=== PATIENT | male | born 1945 | race Caucasian/White ===

== ENCOUNTER → 2016-10-01 | Outpatient (CLI) | payer MEDICARE, BC ==
[2016-10-01 11:43] LABS: BLOOD GAS BASE EXCESS 0.3 mmol/L (-2-2); BLOOD GAS CARBOXYHEMOGLOBIN 1.2 % (0-4); BLOOD GAS HCO3 24 mmol/L (22-26); BLOOD GAS METHEMOGLOBIN 1.1 % (0-2); BLOOD GAS O2 HGB SATURATION 89 % (90-100); BLOOD GAS OXYGEN CONTENT 17.2 Vol % (12.0-20.0); BLOOD GAS PCO2 37 mmHg (38-42); BLOOD GAS PO2 62 mmHg (61-120); BLOOD GAS TOTAL HGB 13.7 G/DL (12.0-16.0); TEMP CORR TO 98.6
[2016-10-01 11:44] LABS: CRITICAL VALUE YES; DRAW SITE RT RADIAL; FIO2 21 %; NUMBER OF ARTERIAL PUNCTURES 1; STAT NO; ULNAR PULSE PRESENT
--- NOTE | 2016-10-01 13:08 | RADRPT ---
EXAM DATE/TIME: 10/01/2016 11:49 [facility] COMPARISON: No previous studies available for comparison. INDICATIONS : Difficulty breathing. MEDICAL HISTORY : Chronic obstructive pulmonary disease. SURGICAL HISTORY : None. ENCOUNTER: Initial ACUITY: 1 week PAIN SCORE: 0/10 LOCATION: Bilateral chest FINDINGS: PA and lateral views of the chest demonstrate minimal lingular infiltrate. Heart borderline enlarged. There is some fissural thickening. Minimal blunting right costophrenic angle could be a tiny effusio n. The cardiomediastinal contours are unremarkable. Osseous structures are intact. CONCLUSION: Lingular infiltrate. Treatment and followup recommended. Giacomo Ennis MD on October 01, 2016 at 13:05 Board Certified Radiologist. This report was verified electronically.
--- NOTE | 2016-10-18 11:17 | RSPPFT ---
DATE OF PROCEDURE: 10/01/16 COMMENTS: Spirometry demonstrates an FEV1 of 1.7 at 62% of predicted, FVC of 3.2 at 77%, FEV1/FVC ratio is 54%. FEF 25-75 of 0.7 is 27%. Post-bronchodilator study demonstrated no significant change. Lung volumes demonstrated a raised RV/TLC ratio suggesting hyperinflation and air trapping. Diffusion capacity is mildly reduced. Room air arterial blood gases demonstrated a pH of 7.40, PCO2 of 37, PO2 of 62 and O2 Saturation at 89%. Flow volume loops are suggestive of an obstructive defect. IMPRESSION: 1. Moderately severe obstructive disease. 2. No significant change following use of bronchodilator. 3. Mild reduction in diffusion capacity.
== END ==
LOC: HRSP 10:36
DX: J44.9 Chronic obstructive pulmonary disease, unspecified (principal); R06.00 Dyspnea, unspecified; E11.9 Type 2 diabetes mellitus without complications; E03.9 Hypothyroidism, unspecified; G47.30 Sleep apnea, unspecified
CPT/HCPCS: 36600; 71020; 82805; 94060; 94726; 94729

== ENCOUNTER 2017-05-14 14:02 | Emergency (ER) | payer MEDICARE, BC ==
[~2017-05-14] VITALS: Ht 175.3 cm; Wt 125.0 kg
[2017-05-14 14:04] VITALS: BP 154/69; PULSE 87; RESP 16; TEMP 98.4; O2SAT 93
[2017-05-14 14:08] VITALS: BP_SYST 117; BP_SYST 154; BP_DIAS 64; BP_DIAS 69; PULSE 87; PULSE 91; RESP 16; TEMP 98.4; TEMP 98.5; O2SAT 100; O2SAT 93
--- NOTE | 2017-05-14 15:02 | RADRPT ---
EXAM DATE/TIME: 05/14/2017 14:42 [facility] COMPARISON: CHEST PA & LAT, October 01, 2016, 11:49. INDICATIONS : Short of breath. MEDICAL HISTORY : Chronic obstructive pulmonary disease. atrial fibrillation SURGICAL HISTORY : None. ENCOUNTER: Initial ACUITY: 1 week PAIN SCORE: 0/10 LOCATION: Bilateral chest FINDINGS: There is moderate hyperinflation with mild compensated cardiomegaly. There is no overt congestive fa ilure. Mild peribronchial thickening in both spaces. . Osseous structures are intact. CONCLUSION: Hyperinflation and mild peribronchial thickening. No congestive failure. Dominic Cervantes MD FACR on May 14, 2017 at 15:00 Board Certified Radiologist. This report was verified electronically.
[2017-05-14 15:22] LABS: AUTOMATED NEUTROPHIL # 7.2 TH/MM3 (1.8-7.7); BASOPHIL # 0.1 TH/MM3 (0-0.2); BASOPHIL % 0.7 % (0.0-2.0); EOSINOPHIL # 0.1 TH/MM3 (0-0.4); EOSINOPHIL % 0.8 % (0.0-4.0); HEMATOCRIT 41.7 % (39.0-51.0); HEMO FLAGS DIFF FINAL; LYMPH % 12.7 % (9.0-44.0); LYMPHOCYTE # 1.2 TH/MM3 (1.0-4.8); MEAN CELL VOLUME 67.1 FL (80.0-100.0); MEAN CORPUSCULAR HEMOGLOBIN 21.1 PG (27.0-34.0); MEAN CORPUSCULAR HGB CONC 31.5 % (32.0-36.0); MONO % 8.6 % (0.0-8.0); NEUT % 77.2 % (16.0-70.0); PLATELET COUNT 317 TH/MM3 (150-450); RED BLOOD COUNT 6.23 MIL/MM3 (4.50-5.90); RED CELL DISTRIBUTION WIDTH 17.1 % (11.6-17.2); WHITE BLOOD COUNT 9.3 TH/MM3 (4.0-11.0)
[2017-05-14 15:32] LABS: BICARBONATE 25.8 MEQ/L (21.0-32.0); POTASSIUM 4.3 MEQ/L (3.5-5.1)
--- NOTE | 2017-05-14 16:42 | PD ---
HPI Chief Complaint: Respiratory Symptoms Time Seen by Provider: 16:37 Travel History International Travel<30 days: Yes Contact w/Intl Traveler<30days: Yes Name of Country Traveled to: [facility] Traveled to known affect area: No History of Present Illness HPI 72 year old male with history of COPD presents to the ED for evaluation of worsening dyspnea on exertion over the last two weeks. Pt reports that he can barely change his clothes without being significantly short of breath. He does not have any pain, nausea, or diaphoresis, but states he feels like he cannot catch his breath with minimal activity. Denies history of PE or DVT. No history of CHF or UT. Pt has recently traveled to [facility]. He has not been recently ill. He has no other symptoms to report. PFSH Past Medical History COPD: Yes Respiratory: Yes (COPD/ SLEEP APNEA) Social History Alcohol Use: No Tobacco Use: No Substance Use: No Allergies-Medications (Allergen,Severity, Reaction): Coded Allergies: No Known Allergies (Verified Allergy, Unknown, 05/14/17) Reported Meds & Prescriptions Reported Meds & Active Scripts Active Reported Norvasc (Amlodipine Besylate) 10 Mg Tab 10 Mg PO DAILY Hydrochlorothiazide 25 Mg Tab 25 Mg PO DAILY Potassium Chloride ER (Potassium Chloride) 10 Meq Cap 10 Meq PO BID Crestor (Rosuvastatin Calcium) 20 Mg Tab 20 Mg PO HS Metformin (Metformin HCl) 1,000 Mg Tab 1,000 Mg PO BID Levothyroxine (Levothyroxine Sodium) 150 Mcg Tab 150 Mcg PO DAILY Cardura (Doxazosin Mesylate) 4 Mg Tab 4 Mg PO DAILY Proair Hfa 8.5 GM Inh (Albuterol Sulfate) 90 Mcg/Act Aer 2 Puff INH Q4HR PRN 108 mcg/actuation Symbicort Inh (Budesonide/Formoterol Fumarate) 160-4.5 Mcg/Act Aero 2 Puff INH Q12HR Tylenol (Acetaminophen) 325 Mg Tab 650 Mg PO Q4H PRN Guaifenesin DM Liq (Guaifenesin-Dextromethorphan Liq) 10-100 Mg/5 Ml Liq 5-10 Ml PO Q4H PRN Lisinopril 40 Mg Tab 40 Mg PO DAILY Review of Systems Except as stated in HPI: all other systems reviewed are Neg Physical Exam Narrative GENERAL: Well nourished male patient sitting in bed in no acute distress SKIN: Warm and dry. HEAD: Atraumatic. Normocephalic. EYES: Pupils equal and round. No scleral icterus. No injection or drainage. ENT: No nasal bleeding or discharge. Mucous membranes pink and moist. NECK: Trachea midline. No JVD. CARDIOVASCULAR: Regular rate and rhythm. RESPIRATORY: No accessory muscle use. Clear to auscultation, diminished bases. Breath sounds equal bilaterally. GASTROINTESTINAL: Abdomen soft, non-tender, nondistended. Hepatic and splenic margins not palpable. MUSCULOSKELETAL: Extremities without clubbing, cyanosis. 1+ bilateral lower extremity edema. No obvious deformities. Distal pulses are palpable. Cap refill WNL NEUROLOGICAL: Awake and alert. No obvious cranial nerve deficits. Motor grossly within normal limits. Five out of 5 muscle strength in the arms and legs. Normal speech. PSYCHIATRIC: Appropriate mood and affect; insight and judgment normal. Data Data Last Documented VS Vital Signs Date Time Temp Pulse Resp B/P (MAP) Pulse Ox O2 Delivery O2 Flow Rate FiO2 05/14/17 18:51 87 22 145/87 (106) 97 05/14/17 16:33 Room Air 05/14/17 14:08 98.4 Orders Orders Complete Blood Count With Diff (05/14/17 14:18) Basic Metabolic Panel (Bmp) (05/14/17 14:18) Chest, Pa & Lat (05/14/17 14:18) Iv Access Insert/Monitor (05/14/17 14:18) Ecg Monitoring (05/14/17 14:18) Oxygen Administration (05/14/17 14:18) Oximetry (05/14/17 14:18) Electrocardiogram (05/14/17 14:18) B-Type Natriuretic Peptide (05/14/17 16:38) Ckmb (Isoenzyme) Profile (05/14/17 16:38) Prothrombin Time / Inr (Pt) (05/14/17 16:38) Act Partial Throm Time (Ptt) (05/14/17 16:38) Troponin I (05/14/17 16:38) Ct Pulmonary Angiogram (05/14/17 ) Iohexol 350 Inj (Omnipaque 350 Inj) (05/14/17 17:11) CKMB (05/14/17 16:40) CKMB% (05/14/17 16:40) Ed Discharge Order (05/14/17 18:04) Labs Laboratory Tests Test 05/14/17 14:50 05/14/17 16:40 White Blood Count 9.3 TH/MM3 Red Blood Count 6.23 MIL/MM3 Hemoglobin 13.1 GM/DL Hematocrit 41.7 % Mean Corpuscular Volume 67.1 FL Mean Corpuscular Hemoglobin 21.1 PG Mean Corpuscular Hemoglobin Concent 31.5 % Red Cell Distribution Width 17.1 % Platelet Count 317 TH/MM3 Mean Platelet Volume 8.1 FL Neutrophils (%) (Auto) 77.2 % Lymphocytes (%) (Auto) 12.7 % Monocytes (%) (Auto) 8.6 % Eosinophils (%) (Auto) 0.8 % Basophils (%) (Auto) 0.7 % Neutrophils # (Auto) 7.2 TH/MM3 Lymphocytes # (Auto) 1.2 TH/MM3 Monocytes # (Auto) 0.8 TH/MM3 Eosinophils # (Auto) 0.1 TH/MM3 Basophils # (Auto) 0.1 TH/MM3 CBC Comment DIFF FINAL Differential Comment Blood Urea Nitrogen 18 MG/DL Creatinine 1.22 MG/DL Random Glucose 145 MG/DL Calcium Level 9.2 MG/DL Sodium Level 140 MEQ/L Potassium Level 4.3 MEQ/L Chloride Level 106 MEQ/L Carbon Dioxide Level 25.8 MEQ/L Anion Gap 8 MEQ/L Estimat Glomerular Filtration Rate 59 ML/MIN Prothrombin Time 10.9 SEC Prothromb Time International Ratio 1.0 RATIO Activated Partial Thromboplast Time 25.4 SEC Total Creatine Kinase 349 U/L Creatine Kinase MB 3.5 NG/ML Creatine Kinase MB % 1.0 % Troponin I 0.03 NG/ML B-Type Natriuretic Peptide 56 PG/ML MDM Medical Decision Making Medical Screen Exam Complete: Yes Emergency Medical Condition: Yes Medical Record Reviewed: Yes Differential Diagnosis COPD vs CHF vs ACS vs pneumonia Narrative Course 72 year old male presents to the ED for evaluation of worsening dyspnea on exertion over the last two weeks. Pt appears well. he is without distress here. VSS Laboratory Tests Test 05/14/17 14:50 05/14/17 16:40 White Blood Count 9.3 TH/MM3 Red Blood Count 6.23 MIL/MM3 Hemoglobin 13.1 GM/DL Hematocrit 41.7 % Mean Corpuscular Volume 67.1 FL Mean Corpuscular Hemoglobin 21.1 PG Mean Corpuscular Hemoglobin Concent 31.5 % Red Cell Distribution Width 17.1 % Platelet Count 317 TH/MM3 Mean Platelet Volume 8.1 FL Neutrophils (%) (Auto) 77.2 % Lymphocytes (%) (Auto) 12.7 % Monocytes (%) (Auto) 8.6 % Eosinophils (%) (Auto) 0.8 % Basophils (%) (Auto) 0.7 % Neutrophils # (Auto) 7.2 TH/MM3 Lymphocytes # (Auto) 1.2 TH/MM3 Monocytes # (Auto) 0.8 TH/MM3 Eosinophils # (Auto) 0.1 TH/MM3 Basophils # (Auto) 0.1 TH/MM3 CBC Comment DIFF FINAL Differential Comment Blood Urea Nitrogen 18 MG/DL Creatinine 1.22 MG/DL Random Glucose 145 MG/DL Calcium Level 9.2 MG/DL Sodium Level 140 MEQ/L Potassium Level 4.3 MEQ/L Chloride Level 106 MEQ/L Carbon Dioxide Level 25.8 MEQ/L Anion Gap 8 MEQ/L Estimat Glomerular Filtration Rate 59 ML/MIN Prothrombin Time 10.9 SEC Prothromb Time International Ratio 1.0 RATIO Activated Partial Thromboplast Time 25.4 SEC Total Creatine Kinase 349 U/L Creatine Kinase MB 3.5 NG/ML Creatine Kinase MB % 1.0 % Troponin I 0.03 NG/ML B-Type Natriuretic Peptide 56 PG/ML Last Impressions Chest X-Ray 05/14/17 1418 Signed Impressions: Service Date/Time: Sunday, May 14, 2017 14:42 - CONCLUSION: Hyperinflation and mild peribronchial thickening. No congestive failure. Dominic Cervantes MD FACR CT Angiography 05/14/17 0000 Signed Impressions: Service Date/Time: Sunday, May 14, 2017 17:06 - CONCLUSION: Negative for central pulmonary emboli Minimal parenchymal changes and pleural thickening laterally in the right lung, nonspecific of doubtful clinical significance Rajiv Cervantes MD FACR Findings are discussed with my attending and the patient. Pt appears well. This is likely a progression of his COPD. 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
[2017-05-14] MEDS ORDERED: IOHEXOL 350 MG/ML 10 ML VIAL (for RAD DIAG) IVCONTRAST ONE (17:11)
[2017-05-14 17:23] LABS: APTT (PATIENT) 25.4 SEC (24.3-30.1); PROTHROMBIN TIME - PATIENT 10.9 SEC (9.8-11.6)
--- NOTE | 2017-05-14 17:24 | RADRPT ---
EXAM DATE/TIME: 05/14/2017 17:06 [facility] COMPARISON: No previous studies available for comparison. INDICATIONS : Shortness of breath. IV CONTRAST: 70 cc Omnipaque 350 (iohexol) IV RADIATION DOSE: 23.45 CTDIvol (mGy) MEDICAL HISTORY : Chronic obstructive pulmonary disease. SURGICAL HISTORY : None. ENCOUNTER: Initial ACUITY: 1 week PAIN SCALE: 2/10 LOCATION: Bilateral chest TECHNIQUE: Volumetric scanning of the chest was performed using a pulmonary embolism protocol MIP images were re constructed. Using automated exposure control and adjustment of the mA and/or kV according to patien t size, radiation dose was kept as low as reasonably achievable to obtain optimal diagnostic quality images. DICOM format image data is available electronically for review and comparison. Follow-up recommendations for detected pulmonary nodules are based at a minimum on nodule size and pa tient risk factors according to Fleischner Society Guidelines. FINDINGS: PULMONARY ARTERIES: Minimal parenchymal changes are seen laterally in the right lung. LUNGS: There is no consolidation or pneumothorax . No concerning pulmonary nodule is visualized. PLEURAE: There is no pleural thickening or pleural effusion. MEDIASTINUM: There is no central pulmonary emboli. Moderate coronary chest cages are seen especially in the LAD. There is no pericardial effusion. MUSCULOSKELETAL: Changes are present in the thoracic spine. MISCELLANEOUS: The visualized upper abdominal organs demonstrate no acute abnormality. CONCLUSION: Negative for central pulmonary emboli Minimal parenchymal changes and pleural thickening laterally in the right lung, nonspecific of doubtf ul clinical significance Rajiv Cervantes MD FACR on May 14, 2017 at 17:17 Board Certified Radiologist. This report was verified electronically.
[2017-05-14 17:33] LABS: CKMB 3.5 NG/ML (0.5-3.6)
[2017-05-14] MEDS ORDERED: AMLO10 PO (17:33)
[2017-05-14] MEDS ORDERED: TYLE325T PO (17:33)
[2017-05-14] MEDS ORDERED: LISI40TA PO (17:33)
[2017-05-14] MEDS ORDERED: GUAISYP7 PO (17:33)
[2017-05-14] MEDS ORDERED: HYDR25TA5 PO (17:33)
[2017-05-14] MEDS ORDERED: METF1000 PO (17:33)
[2017-05-14] MEDS ORDERED: ROSU20 PO (17:33)
[2017-05-14] MEDS ORDERED: ALBUAER3 INH (17:33)
[2017-05-14] MEDS ORDERED: LEVO150T7 PO (17:33)
[2017-05-14] MEDS ORDERED: POTA10CA PO (17:33)
[2017-05-14] MEDS ORDERED: CARD4TAB2 PO (17:33)
[2017-05-14] MEDS ORDERED: SYMB160A INH (17:33)
[2017-05-14 18:51] VITALS: BP 145/87
--- NOTE | 2017-05-15 12:38 | EKG ---
Date Performed: 05/14/2017 Time Performed: 14:40:26 PTAGE: 72 years EKG: ATRIAL FIBRILLATION with controlled ventricular rate Nondiagnostic T-waves in inferior lead s Cannot exclude old inferior infarct ABNORMAL ECG NO PREVIOUS TRACING DOCTOR: Sukh Matthew Interpretating Date/Time 05/15/2017 12:38:06
== END 2017-05-14 18:51 | disposition home or self-care (01) ==
LOC: NEPC 14:02
DX: R06.09 Other forms of dyspnea (principal); J44.9 Chronic obstructive pulmonary disease, unspecified; I48.91 Unspecified atrial fibrillation
CPT/HCPCS: 71020; 71275; 80048; 82550; 82552; 83880; 84484; 85025; 85610; 85730; 93005; 99285; Q9967